=== PATIENT | male | born 1995 | race Caucasian/White ===

== ENCOUNTER 2024-09-27 22:59 | Emergency (ER) | payer SELFPAY ==
[~2024-09-27] VITALS: Ht 170.2 cm; Wt 66.0 kg
[2024-09-27 23:03] VITALS: O2SAT 100
[2024-09-27 23:58] LABS: BASOPHILS % 0.5 % (0.0-2.0); EOSINOPHILS % 0.1 % (0.0-5.0); HEMATOCRIT. 43.9 % (42.0-52.0); HEMOGLOBIN. 15.0 g/dL (14.0-18.0); LYMPHOCYTES % 22.7 % (20.0-50.0); MEAN PLATELET VOLUME 8.7 fl (7.4-10.4); MONOCYTES % 5.2 % (2.0-8.0); NEUTROPHILS % 71.5 % (40.0-76.0); PLATELET 257 x1000/uL (130-400); RED BLOOD CELL COUNT 4.87 mill/uL (4.7-6.1); RED CELL DISTRIBUTION WIDTH 13.1 % (11.6-14.6)
[2024-09-28 00:12] LABS: CREATININE 0.8 mg/dL (0.6-1.3); ETHANOL BLOOD 172 mg/dL (<10); UREA NITROGEN BLOOD 7 mg/dL (9-23)
[2024-09-28] MEDS: POTASSIUM CHLORIDE 20MEQ TABLET SR PO ONE (00:15)
[2024-09-28] MEDS: ONDANSETRON 4MG ODT PO ONE (00:15)
[2024-09-28 01:54] VITALS: BP 108/57; PULSE 85; RESP 15; TEMP 36.7; O2SAT 100
== END 2024-09-28 01:55 | disposition home or self-care (01) ==
LOC: ER 22:59
DX: F10.129 Alcohol abuse with intoxication, unspecified (principal); E87.6 Hypokalemia; F41.9 Anxiety disorder, unspecified; Z88.0 Allergy status to penicillin; Y90.6 Blood alcohol level of 120-199 mg/100 ml
CPT/HCPCS: 36415; 80048; 80320; 85025; 99283; Q0162; G0480